=== PATIENT | male | born 1975 | race Caucasian/White ===

== ENCOUNTER 2019-08-22 10:30 | Inpatient (IN) ==
[2019-08-22 11:33] LABS: ABS Basophils 0.1 10^3/ul (0-0.2); ABS Lymphocytes 2.5 10^3/ul (1.0-4.8); ABS Monocytes 0.5 10^3/ul (0-0.8); Eosinophil % 0.2 %; Hematocrit 45 % (42-52); Hemoglobin 15.3 g/dL (14.0-18.0); Lymphocyte % 22.6 %; Mean Corpuscular HGB Conc 34 g/dL (31-36); Mean Corpuscular Hemoglobin 31 pg (27-31); Mean Corpuscular Volume 89 fL (80-94); Mean Platelet Volume 7.9 fL (7.4-10.4); Nucleated Red Blood Cells % 0.1; Platelet Count 404 10^3/uL (150-450); Red Cell Distribution Width 14 % (10-15); White Blood Count 10.9 10^3/uL (3.5-10.8)
[2019-08-22 11:49] LABS: ALT 23 U/L (7-52); AST 18 U/L (13-39); Albumin 4.5 g/dL (3.2-5.2); Albumin/Globulin Ratio 1.4 (1-3); Alkaline Phosphatase 127 U/L (34-104); Anion Gap 9 mmol/L (2-11); BUN/Creatinine Ratio 20.8 (8-20); Blood Urea Nitrogen 16 mg/dL (6-24); CO2 Carbon Dioxide 22 mmol/L (22-32); Calcium 9.6 mg/dL (8.6-10.3); Chloride 108 mmol/L (101-111); EGFR African American 132.2 (>60); EGFR Non-African American 109.3 (>60); Globulin 3.3 g/dL (2-4); Glucose 109 mg/dL (70-100); Potassium 3.3 mmol/L (3.5-5.0); Sodium 139 mmol/L (135-145); Total Protein 7.8 g/dL (6.4-8.9)
[2019-08-22] MEDS ORDERED: Buprenorp/Nalox 8-2 MG SL TAB PO ONE (11:59)
[2019-08-22 12:12] LABS: Acetaminophen < 15 mcg/mL; Alcohol, S < 10 mg/dL (<10); Salicylate < 2.50 mg/dL (<30)
[2019-08-22] MEDS ORDERED: Potassium Chlor 20 meq TAB.ER PO ONE (12:15)
[2019-08-22 12:27] LABS: TSH (Thyroid Stimulating Horm) 0.36 mcIU/mL (0.34-5.60)
[2019-08-22] MEDS ORDERED: Al Hydrox/Mg Hydrox/Simet LIQ 30 ML UDC PO PRN (14:24)
[2019-08-22 16:46] LABS: Urine Appearance Clear; Urine Bilirubin Negative (Negative); Urine Blood 1+ (Negative); Urine Color Amber; Urine Glucose Negative (Negative); Urine Ketones Negative (Negative); Urine Nitrite Negative (Negative); Urine Protein 1+(30 mg/dL) (Negative); Urine Specific Gravity 1.029 (1.010-1.030); Urine Urobilinogen Negative (Negative)
[2019-08-22 16:53] LABS: Urine Bacteria Absent (Absent); Urine Red Blood Cell 2+(6-10/hpf) (Absent); Urine Squamous Epithelial Cell Present (Absent); Urine White Blood Cell Trace(0-5/hpf) (Absent)
[2019-08-22 17:19] LABS: Urine Benzodiazepine Screen None Detected (None Detect); Urine Opiates Screen None Detected (None Detect)
[2019-08-22] MEDS: Nicotine GUM 4MG FRUIT FLAVOR PO PRN (20:57)
[2019-08-23] MEDS: Nicotine GUM 4MG FRUIT FLAVOR PO PRN ×4 (08:05→21:12)
[2019-08-23] MEDS: Nicotine PATCH 21 MG/24 HR PATCH TRANSDERM SCH (08:05)
[2019-08-23] MEDS: Vitamin THERAPEUTIC TAB PO SCH (08:07)
[2019-08-23] MEDS: lamoTRIgine 100 mg TAB (*) PO SCH (11:57)
[2019-08-23] MEDS: Buprenorp/Nalox 8-2 MG FILM SL FILM SCH ×2 (11:57→20:37)
[2019-08-23] MEDS: Potassium Chlor 20 meq TAB.ER PO SCH (20:35)
[2019-08-24] MEDS: Nicotine PATCH 21 MG/24 HR PATCH TRANSDERM SCH (09:07)
[2019-08-24] MEDS: Vitamin THERAPEUTIC TAB PO SCH (09:08)
[2019-08-24] MEDS: lamoTRIgine 100 mg TAB (*) PO SCH (09:08)
[2019-08-24] MEDS: Venlafaxine XR 75 mg PO SCH (09:09)
[2019-08-24] MEDS: Buprenorp/Nalox 8-2 MG FILM SL FILM SCH ×2 (09:09→17:54)
[2019-08-24] MEDS: Nicotine GUM 4MG FRUIT FLAVOR PO PRN ×3 (12:18→17:55)
[2019-08-24] MEDS: Potassium Chlor 20 meq TAB.ER PO SCH (20:25)
[2019-08-25] MEDS: Venlafaxine XR 75 mg PO SCH (07:59)
[2019-08-25] MEDS: Nicotine PATCH 21 MG/24 HR PATCH TRANSDERM SCH (07:59)
[2019-08-25] MEDS: lamoTRIgine 100 mg TAB (*) PO SCH (07:59)
[2019-08-25] MEDS: Buprenorp/Nalox 8-2 MG FILM SL FILM SCH (08:00)
[2019-08-25] MEDS: Vitamin THERAPEUTIC TAB PO SCH (08:00)
[2019-08-25 08:54] VITALS: BP 99/58
[2019-08-25] MEDS: Nicotine GUM 4MG FRUIT FLAVOR PO PRN (10:00)
== END 2019-08-25 11:20 | disposition home or self-care (01) | DRG 881 ==
LOC: ED 10:30 → BSU 14:24
PROVIDERS: ADMIT Psychiatry & Neurology Psychiatry; ATTEND Psychiatry & Neurology Psychiatry